=== PATIENT | female | born 1990 | race Caucasian/White ===

== ENCOUNTER → 2016-08-13 07:18 | Day surgery (SDC) | payer OTHER ==
[~2016-08-13 07:18] MED LIST: Buffered Lidocaine 1% SYR 3ML* 3 ML/SYR SYRINGE INTRADERM ONE; Bupivacaine 0.5% SDV PF* 30 ML VIAL ONE; Midazolam* 1 MG/ML 5 ML VIAL (5 MG) ONE; fentaNYL* 50 MCG/ML 2 ML VIAL (100 MCG VIAL) ONE
[2016-08-13 09:53] VITALS: BP 99/64
--- NOTE | 2016-08-14 01:50 | OP ---
DATE OF OPERATION: 08/13/16 [facility] DATE OF : 88 SURGEON: Alex Green MD WHITEPRINTING MACHINE OPERATOR: VERONICA Villalba ANESTHESIOLOGIST: Dr. Domingo. ANESTHESIA: Local MAC. PRE-OP DIAGNOSIS: Left wrist de Quervain's tenosynovitis. POST-OP DIAGNOSIS: Left wrist de Quervain's tenosynovitis. OPERATIVE PROCEDURE: Left wrist de Quervain's release. INDICATIONS: Joycelyn is a 26-year-old female who has had an injection in the first dorsal compartment tendon sheath. She continues to have pain and problems and so we talked about risks and benefits and she elected to proceed with surgical decompression. EBL: 5 mL. COMPLICATIONS: None. FINDINGS: As expected. DESCRIPTION OF PROCEDURE: Joycelyn was seen in the preoperative holding area and correct site and side were marked. We came back to the operating room, where she had some anesthesia. Then, I injected the operative area with 0.5% Marcaine. We then prepped and draped the arm in the usual fashion. A formal time-out was performed. The arm was exsanguinated with the Esmarch and tourniquet inflated to 250 mmHg. A transverse incision was made and dissection was carried down bluntly to the tendon sheath and full-thickness flaps were raised off the tendon sheath. The tendon sheath was then opened on the dorsal aspect with a 15-blade. I went ahead and decompressed this using the tenotomy scissors. I noted that there was an accessory compartment. The septum between the two compartments was incised and opened up. I went ahead and excised some of the tenosynovium that was abundant around the tendons. Overall, the decompression looked very nice and so I went ahead and irrigated the wound and closed the wound with some 4-0 Monocryl subcuticular suture followed by some Steri-Strips. The wound was then dressed and she was taken to the recovery room in stable condition. Tourniquet was deflated after dressings were applied. [id number]/[facility] #: [id number] MTDD
== END | disposition home or self-care (01) ==
LOC: OREAST 07:18
PROVIDERS: ATTEND Orthopaedic Surgery Hand Surgery
DX: M65.4 Radial styloid tenosynovitis [de Quervain] (principal)
CPT/HCPCS: J2250; J3010

== ENCOUNTER → 2017-10-04 11:01 | Day surgery (SDC) | payer OTHER ==
[~2017-10-04 11:01] MED LIST changes: +Buffered Lidocaine 0.9% SYRIN* 5 ML/SYR SYRINGE INTRADERM ONE; -Buffered Lidocaine 1% SYR 3ML* 3 ML/SYR SYRINGE INTRADERM ONE; -Bupivacaine 0.5% SDV PF* 30 ML VIAL ONE; +Famotidine IV* 10 MG/ML 2 ML (20 mg) IV ONE; +Famotidine IV* 10 MG/ML 2 ML (20 mg) ONE; -Midazolam* 1 MG/ML 5 ML VIAL (5 MG) ONE; -fentaNYL* 50 MCG/ML 2 ML VIAL (100 MCG VIAL) ONE
[2017-10-04 11:34] VITALS: BP 130/63
== END | disposition home or self-care (01) ==
LOC: OR 11:01
PROVIDERS: ATTEND Orthopaedic Surgery Hand Surgery
DX: M67.432 Ganglion, left wrist (principal); Z53.8 Procedure and treatment not carried out for other reasons
CPT/HCPCS: 81025

== ENCOUNTER 2017-11-06 10:53 | Emergency (ER) | payer OTHER ==
--- OUTSIDE RECORDS SUMMARY | 2017-11-06 11:04 | XMS REPORT ---
:1990 External Reference #:[id number] Demographics Address [address] [place] [address] Mobile Phone [phone] Email Address [email or web address] Preferred Language Syriac Marital Status Not Or Mu-Ism Affiliation Unknown Race White Ethnic Group Not Or Author Organization [employer] Address [address] [address] Phone [phone] Care Team Providers Name Role Phone Ruthie Coe MD Care Team Information Director Workers Compensation Unavailable Ruthie Coe MD Primary Care Physician Unavailable Payers Type Date Identification Numbers Payment Provider Subscriber Commercial Expires: Policy Number: Oliver Fletcher 2016 [id number] Group Number: [id number] [address] PayID: [id number] [place] [address] Commercial Policy Number: [id number] Oliver Fletcher Group Number: [id number] [address] PayID: [id number] [place] [address] Problems Date Description Provider Status Onset: 01/26/2017 Lesion of ulnar nerve Alex Green MD Active Onset: 01/26/2017 Ganglion cyst of left wrist Alex Green MD Active Family History Date Family Member(s) Problem(s) Comments General Heart Disease General Diabetes General Cancer Social History Type Date Description Comments Lives With Sons Occupation Unemployed ETOH Use Denies alcohol use Smoking Patient has never smoked Exercise Type/Frequency Exercises regularly Allergies, Adverse Reactions, Alerts Date Description Reaction Status Severity Comments 01/22/2016 NKDA active Medications Medication Date Status Form Strength Qnty SIG Indications Ordering Provider Ibuprofen / Active Tablets 600mg 1 by mouth Unknown 0000 three times a day as needed Nexplanon / Active Implant 68mg as Unknown 0000 directed Tramadol HCL 10/04/ Hx Tablets 50mg 30tabs 1-2 Alex 2017 - tablets by Peter 10/18/ mouth 2018 every 6 hours as needed pain Tramadol 08/13/ Hx Tablets 37.5-325mg 25tabs Take 1 to Alex Hydrochloride/Ac 2017 - 2 tabs tracy Greenminangel 01/25/ every 4 to 2017 6 hours as needed for pain No Active Unknown Medications 2015 - 2016 Docqlace / Hx Capsules 100mg White, 0000 - Ruthie, 2015 Ibuprofen / Hx Tablets 600mg White, 0000 - Ruthie, 2015 Nitrofurantoin / Hx Capsules 100mg 1 by mouth Unknown Monohydrate/Macr 0000 - daily ocrystals 2017 Nitrofurantoin / Hx Capsules 100mg 1 po qday Unknown Monohydrate/Macr 0000 - ocrystals 2017 Medications Administered in Office Medication Date Status Form Strength Qnty SIG Indications Ordering Provider Celestone 3 Administered Injection Alex mg and 3mg Shan Green MD Depomedrol Administered Injection Aide 40MG Shan Herman M.D. Vital Signs Date Vital Result Comment 10/19/2017 Height 60 inches 5'0" Weight 135.00 lb Heart Rate 76 /min BP Systolic Sitting 122 mmHg BP Diastolic Sitting 74 mmHg Respiratory Rate 16 /min Pain Level 6 when moving its an 8 BMI (Body Mass Index) 26.4 kg/m2 09/21/2017 Height 60 inches 5'0" Weight 135.00 lb Heart Rate 68 /min BP Systolic Sitting 98 mmHg BP Diastolic Sitting 62 mmHg Respiratory Rate 16 /min Body Temperature 100.3 F Pain Level 4 with motion her wrist is still BMI (Body Mass Index) 26.4 kg/m2 01/26/2017 Height 60 inches 5'0" Weight 140.00 lb Heart Rate 73 /min BP Systolic 98 mmHg BP Diastolic 62 mmHg Respiratory Rate 16 /min Pain Level 6 O2 % BldC Oximetry 98 % Ra BMI (Body Mass Index) 27.3 kg/m2 09/01/2016 Height 60 inches 5'0" Weight 135.00 lb Heart Rate 80 /min BP Systolic 110 mmHg BP Diastolic 82 mmHg Respiratory Rate 20 /min Pain Level 0 BMI (Body Mass Index) 26.4 kg/m2 08/07/2016 Height 60 inches 5'0" Weight 135.00 lb Heart Rate 58 /min BP Systolic Sitting 104 mmHg BP Diastolic Sitting 80 mmHg Respiratory Rate 14 /min Body Temperature 98.8 F Pain Level 4 BMI (Body Mass Index) 26.4 kg/m2 07/07/2016 Heart Rate 88 /min BP Systolic Sitting 120 mmHg BP Diastolic Sitting 78 mmHg Pain Level 0 tightness 06/02/2016 Height 60 inches 5'0" Weight 130.00 lb Heart Rate 65 /min BP Systolic 116 mmHg BP Diastolic 64 mmHg BMI (Body Mass Index) 25.4 kg/m2 01/22/2016 Height 60 inches 5'0" Weight 135.00 lb Heart Rate 70 /min BP Systolic Sitting 120 mmHg BP Diastolic Sitting 70 mmHg BMI (Body Mass Index) 26.4 kg/m2 Results Description No Information Procedures Date CPT Code Description Status 01/26/2017 27525 Rad Exam; Wrist, Comp, Min 3 Views Completed 08/13/2016 98589 Dequervains-Tendon Sheath Incision/Extensor Completed Sheath,Wrist 08/13/2016 85001 Dequervains-Tendon Sheath Incision/Extensor Completed Sheath,Wrist 06/02/2016 03327 Inject Tendon Sheath Or Ligament Aponeurosis Eg Plantar Completed Fascia 01/22/2016 66550 Inject Tendon Sheath Or Ligament Aponeurosis Eg Plantar Completed Fascia Encounters Type Date Location Provider CPT E/M Dx Office Visit 01/26/2017 [place] [address] M67.432 10:00a Of [facility] G56.22 Office Visit 08/07/2016 8:45a [place] [address] M65.4 Of [facility] Office Visit 07/07/2016 9:00a [place] [address] M65.4 Of [facility] Office Visit 01/22/2016 2:00p [facility]opedic Services Aide Herman [address]66[address] G56.01 Of [facility] Tasia M65.4 Plan of Care Future Appointment(s):11/09/2017 10:00 am - Alex Green MD at [facility]/24/2018 - Alex Green MDG56.02 Carpal tunnel syndrome, left upper limbNew Orders:EMG w/Nerve Conduct Study, UpperFollow up: Follow up: AFTER EMGG56.22 Lesion of ulnar nerve, left upper limb
[2017-11-06 11:10] VITALS: BP 100/64
[2017-11-06] MEDS ORDERED: HYDROcodone/ACETAMIN 5-325 MG* 1 TAB PO ONE (12:23)
--- NOTE | 2017-11-06 12:59 | RAD ---
Indication: Left hip pain. 2 views of the left hip demonstrates no fracture. Pelvic ring is intact. Joint spaces well-preserved. IMPRESSION: No fracture of left hip is noted.
--- NOTE | 2017-11-06 13:17 | UC ---
Hip/Pelvis Pain - HPI Summary HPI Summary: 27 yo WF p/w c/o left hip pains and recurrent left LBP and sciatica radiating to left buttock x few days, cannot sleep at night and needs something stronger than OTC analgesics. Left hip pain has been present since giving a few years ago and turned into sciatica and wants to know if her left hip "is dislocated". Pt ambulates w/o limping - History Of Current Complaint Chief Complaint: UCLowerExtremity Stated Complaint: LEFT HIP COMP Time Seen by Provider: 11/06/17 11:33 Hx Obtained From: Patient Hx Last Menstrual Period: 09/2017 Onset/Duration: Sudden Onset, Lasting Days Severity Initially: Severe Severity Currently: Severe Pain Intensity: 9 Character Of Pain: Sharp, Dull, Aching, Throbbing, Spasmodic, Stiffness Aggravating Factor(s): Nothing Alleviating Factor(s): Nothing Associated Signs And Symptoms: Positive: Negative - Allergies/Home Medications Allergies/Adverse Reactions: Allergies Allergy/AdvReac Type Severity Reaction Status Date / Time No Known Allergies Allergy Verified 10/04/17 11:19 PMH/Surg Hx/FS Hx/Imm Hx Previously Healthy: Yes - Surgical History Surgical History: Yes Surgery Procedure, Year, and Place: 2013 left wrist ganglion cyst removal - [facility]. 2016 left wrist tendonitis repair - [facility] - Social History Alcohol Use: None Substance Use Type: None Smoking Status (MU): Never Smoked Tobacco Household Exposure Type: Cigarettes Review of Systems Constitutional: Negative Skin: Negative Eyes: Negative ENT: Negative Respiratory: Negative Cardiovascular: Negative Gastrointestinal: Negative Genitourinary: Negative Motor: Negative Neurovascular: Negative Musculoskeletal: Negative, Other: - Left hip pain, LBP and left sciatica Neurological: Negative Psychological: Negative All Other Systems Reviewed And Are Negative: Yes Physical Exam Triage Information Reviewed: Yes Appearance: Ill-Appearing Vital Signs: Initial Vital Signs Temp 37.0 C 11/06/17 11:05 Pulse 66 11/06/17 11:05 Resp 17 11/06/17 11:05 BP 100/64 11/06/17 11:05 Pulse Ox 100 11/06/17 11:05 Vital Signs Reviewed: Yes Eye Exam: Normal ENT Exam: Normal ENT: Positive: Normal ENT inspection Dental Exam: Normal Neck exam: Normal Respiratory Exam: Normal Cardiovascular Exam: Normal Cardiovascular: Positive: RRR Abdominal Exam: Normal Musculoskeletal Exam: Other Musculoskeletal: Positive: Other: - lumbar paraspinal and left buttock tenderness, deep shooting pains Neurological Exam: Normal Neurological: Positive: Other: - NON antalgia gait Psychological: Positive: Consolable Skin Exam: Normal Hip Injury Course/Dx - Course Course Of Treatment: XR of left hip and pelvis neg for fx or dislocation. PO Berclair administered in UC with much improvement in current sx, advised against starting and potentially becoming dependent on narcotics, so prescribed Zanaflex for severe sciatica sx at night - Differential Dx/Diagnosis Provider Diagnoses: Sciatica. Left lumbar back pains. Left hip pain Discharge - Sign-Out/Discharge Documenting (check all that apply): Discharge/Admit/Transfer - Discharge Plan Condition: Stable Disposition: HOME Prescriptions: Tizanidine HCl 4 mg PO BEDTIME 7 Days #7 capsule Patient Education Materials: Sciatica (ED), Piriformis Syndrome (ED), Lower Back Exercises (ED) Referrals: Ruthie Coe MD [Primary Care Provider] - - Billing Disposition and Condition Condition: STABLE Disposition: HOME
== END 2017-11-06 13:25 | disposition home or self-care (01) ==
LOC: UCCORT 10:53
DX: M54.5 Low back pain (principal); M25.552 Pain in left hip
CPT/HCPCS: 99212; G0463